=== PATIENT | male | born 1955 | race Caucasian/White ===

== ENCOUNTER → 2016-10-18 | Outpatient (CLI) | payer MEDICAID | LOC: BMCIMAGING 07:58 | PROVIDERS: ATTEND Internal Medicine | DX: R07.89 Other chest pain (principal); R10.84 Generalized abdominal pain; K82.4 Cholesterolosis of gallbladder; R93.2 Abnormal findings on diagnostic imaging of liver and biliary tract; D73.89 Other diseases of spleen; K76.89 Other specified diseases of liver ==

== ENCOUNTER 2016-10-19 06:03 | Day surgery (SDC) | payer MEDICAID ==
[2016-10-19] MEDS ORDERED: LR 1,000 ML IV ONE (06:19)
--- NOTE | 2016-10-19 07:20 | PDGENHP ---
History & Physical Chief Complaint: screening colonoscopy History of Present Illness: screening colonoscopy Pertinent Past, Social, Family History: ESTEBAN. No fam hx colon cancer Relevant Physical Exam: NAD. RRR. CTAB. s/nt/nd
--- NOTE | 2016-10-19 07:30 | PDANEPAE ---
ANE History of Present Illness colonoscopy ANE Past Medical History Past Medical History: jimena/cpap - Cardiovascular History Hx Hypertension: No Hx Arrhythmias: No Hx Chest Pain: No Hx Coronary Artery / Peripheral Vascular Disease: No Hx CHF / Valvular Disease: No Hx Palpitations: No - Pulmonary History Hx COPD: No Hx Asthma/Reactive Airway Disease: No Hx Recent Upper Respiratory Infection: No Hx Oxygen in Use at Home: No - Neurologic History Hx Cerebrovascular Accident: No Hx Seizures: No Hx Dementia: No - Endocrine History Hx Diabetes: No - Renal History Hx Renal Disorders: No - Liver History Hx Hepatic Disorders: No - Neurological & Psychiatric Hx Hx Neurological and Psychiatric Disorders: No - Cancer History Hx Cancer: No - Congenital Disorder History Hx Congenital Disorders: No - GI History Hx Gastrointestinal Disorders: No - Chronic Pain History Chronic Pain: No ANE Review of Systems - Exercise capacity METS (RN): 4 METS ANE Patient History - Allergies Allergies/Adverse Reactions: No Known Allergies Allergy (Verified 10/18/16 18:00) - Home Medications Home Medications: Herbals/Supplements -Info Only 10/18/16 [Last Taken 10/13/16] - NPO status NPO Since - Liquids (Date): 10/18/16 NPO Since - Liquids (Time): 23:30 NPO Since - Solids (Date): 10/18/16 NPO Since - Solids (Time): 00:00 - Smoking Hx Smoking Status: Former smoker - Family Anes Hx Family Hx Anesthesia Complications: none ANE Labs/Vital Signs - Vital Signs Blood Pressure: 108/70 Heart Rate: 67 Respiratory Rate: 15 O2 Sat (%): 92 Height: 182.88 cm Weight: 86.183 kg ANE Physical Exam - Airway Neck exam: FROM Mallampati Score: Class 2 Mouth exam: normal dental/mouth exam - Pulmonary Pulmonary: no respiratory distress - Cardiovascular Cardiovascular: regular rate and rhythym - ASA Status ASA Status: II ANE Anesthesia Plan Anesthesia Plan: GA with mask, MAC
[2016-10-19] MEDS ORDERED: MIDAZOLAM 2 MG/2 ML VIAL ONE (07:31)
[2016-10-19] MEDS ORDERED: PROPOFOL/EMULSION 500 MG/50 ML BOTTLE IV ONE (07:31)
[2016-10-19] MEDS ORDERED: LIDOCAINE 2% 5 ML SDV ONE (07:32)
[2016-10-19] MEDS ORDERED: MEPERIDINE 25 MG/ML SYR IVP PRN (07:49)
[2016-10-19] MEDS ORDERED: ALBUTEROL 3 ML DEYVIAL IH PRN (07:49)
[2016-10-19] MEDS ORDERED: NALOXONE HCL 0.4 MG/ML INJ IVP PRN (07:49)
[2016-10-19] MEDS ORDERED: fentaNYL 100 MCG/2 ML INJ IVP PRN (07:49)
[2016-10-19] MEDS ORDERED: LR 500 ML IV PRN (07:49)
[2016-10-19] MEDS ORDERED: ONDANSETRON 4 MG/2 ML VIAL IVP PRN (07:49)
--- NOTE | 2016-10-19 08:02 | POSTANESTH ---
Post Anesthetic Evaluation Cardiovascular Status: Normal, Stable Respiratory Status: Normal, Stable Level of Consciousness/Mental Status: Can Participate in Eval Pain Control: Adequate, Prn Tx Ordered Nausea/Vomiting Control: Adequate, Prn Tx Ordered Complications Possibly Related to Anesthesia: None Noted
[2016-10-19 08:35] VITALS: TEMP 97.7
[2016-10-19 09:51] VITALS: BP 116/78; PULSE 66; RESP 18; O2SAT 98
--- NOTE | 2016-10-19 12:20 | GPN ---
[f rep st] PROCEDURE NOTE DATE OF PROCEDURE: 10/19/2016 PROCEDURE: Colonoscopy with polypectomy. INDICATION: Average risk screening colonoscopy. CONSENT: Informed consent was obtained from the patient after an explanation of risks, benefits, and alternatives to the procedure. MEDICATIONS GIVEN: Per Anesthesia, received propofol. LEVEL SEDATION: Per Anesthesia. DESCRIPTION OF EXAMINATION: After adequate sedation was achieved, the colonoscope was advanced under direct vision through the anal orifice and as far as the cecum, appendiceal orifice, and terminal ileum. Photographs were obtained of the appendiceal orifice, terminal ileum, ileocecal valve, and retroflexion in the rectum. Prep was good after cleansing. Views were good. Patient tolerance of the procedure was excellent. COMPLICATIONS: None. FINDINGS: 1. Normal terminal ileum. 2. 5 cm cecal polyp and 3 mm ascending colon polyp were both removed with a cold snare, completely resected, retrieved, and placed in jar 1 for pathology. 3. 2 mm sigmoid colon polyp was removed with cold biopsy forceps and placed in jar #2. 4. Diverticulosis was seen throughout the colon including the ascending colon, transverse colon, descending colon, and sigmoid colon. Diverticulosis was moderate in the ascending, transverse, and descending colon and extensive in the sigmoid colon. 5. Large internal hemorrhoids were seen. RECOMMENDATIONS: 1. Resume regular diet. 2. Await pathology results. If 1 or 2 polyps are adenomas, then repeat colonoscopy in 5 years. If all 3 polyps are adenomas, then repeat colonoscopy in 3 years. 3. If there is regular bleeding, itching, prolapse, or discomfort from the internal hemorrhoids, please call for an office visit to possibly treat them. 4. High-fiber diet is recommended indefinitely. /[id number]/MODL MTDD
== END 2016-10-19 09:55 | disposition home or self-care (01) ==
LOC: FSGY 06:03
PROVIDERS: ATTEND Internal Medicine
DX: Z12.11 Encounter for screening for malignant neoplasm of colon (principal); D12.0 Benign neoplasm of cecum; D12.2 Benign neoplasm of ascending colon; K63.5 Polyp of colon; K57.30 Diverticulosis of large intestine without perforation or abscess without bleeding; K64.8 Other hemorrhoids
CPT/HCPCS: J2250; J2704

== ENCOUNTER → 2016-12-02 | Outpatient (CLI) | payer MEDICAID ==
[~2016-12-02] MED LIST: GADOBUTROL 10 ML VIAL IVP ONE
== END ==
LOC: FIMAGING 08:01
PROVIDERS: ATTEND Internal Medicine
DX: D73.89 Other diseases of spleen (principal); K80.20 Calculus of gallbladder without cholecystitis without obstruction
CPT/HCPCS: A9585